=== PATIENT | female | born 1965 | race Caucasian/White ===

== ENCOUNTER → 2024-01-09 13:39 | Outpatient (REF) | payer OTHER, SELFPAY | LOC: WDC 13:39 | PROVIDERS: ATTENDING PHYSICIAN Physician Assistant Medical | DX: Z12.31 Encounter for screening mammogram for malignant neoplasm of breast (principal); Z13.820 Encounter for screening for osteoporosis | CPT/HCPCS: 77080 ==

== ENCOUNTER 2024-04-29 10:10 | Emergency (ER) | payer BC, SELFPAY ==
[2024-04-29] VITALS (7 sets, daily range): BP systolic 98–116; BP diastolic 48–70; PULSE 75–92; BMI 26.9
--- NOTE | 2024-04-29 11:43 | EDRN ---
Lm ESPINOZA in room w/pt at this time.
--- NOTE | 2024-04-29 11:55 | ED.GENMED ---
History of Present Illness
General
Chief Complaint: Fainting/Passed Out
Source: patient
Time Seen by Provider: 04/29/24 11:42
History of Present Illness
History of Present Illness:
59yoF with a history of seasonal allergies presenting for evaluation after a syncopal episode. Patient woke up around 2am this morning to urinate. While she was on the toilet urinating, she started to feel 'weird' and felt like she had to go sit
down. Patient tried to hurry on the toilet to get back to bed. Patient was walking out of the bathroom when she passed out. She fell forward and struck her head on the doorknob. She was unconscious for about 30 seconds. Her helped her up and
then she had a second episode of passing out. states that she was snoring immediately upon losing consciousness. There was no seizure-like activity, incontinence, or tongue biting. Patient then went back to sleep. She denies any dizziness
currently. No chest pain, shortness of breath, palpitations during the episode. She has a history of syncopal episodes in the past but has not had an episode in several years. Of note, she has been very thirsty the past few days.
Phy Exam
General Physical Exam
General Presentation: well appearing and no apparent distress
General age: appears stated age
General Skin: warm and dry
General Habitus: normal
General Mental: alert
ENT Exam
ENT Exam: TM's normal (No hemotympanum), normocephalic and other (1.5cm well approximated curved laceration to the L forehead with scabbing)
Cardiovascular Exam
Cardiovascular Exam: regular rate/rhythm and no edema
Pulmonary Exam
Pulmonary Exam: lungs clear, no respiratory distress, no crackles and no wheezing
[place] Coma Scale
Eye Opening: Spontaneous
Verbal Response: Oriented
Motor Response: Obeys Commands
GCS Total Score: 15
Skin Exam
Skin Exam: normal color and warm/dry
Psychiatric Exam
Psychiatric Exam: normal mood/affect
Course
Orders/Labs/Results
Orders:
Orders
04/29/24 11:54
Electrocardiogram (*1) Urgent
Reason for Study: Syncope
EKG- Treatment ONCE
0.9% Sodium Chloride 1000 ml [Nss] 1,000 ml IV BOLUS
04/29/24 11:57
Cardiac Monitoring- Treatment ONCE
04/29/24 12:01
CT Head W/o Iv Contrast Urgent
Comment:
Reason For Exam: Head injury, LOC
04/29/24 12:02
Orthostatic VS- Treatment ONCE
04/29/24 12:24
Complete Blood Count/With Diff Urgent
Comprehensive Metabolic Panel Urgent
Troponin I Urgent
Abnormal Lab Results
04/29/24
12:24
MPV 11.9 H fL
(7.4-10.4)
Absolute Lymphs (auto) 0.9 L 10^3/uL
(1.2-3.4)
Neutrophils % 77.7 H %
(42.2-75.2)
Lymphocytes % 14.2 L %
(20.5-51.1)
Glucose 101 H mg/dl
(70-99)
04/29/24 12:24
04/29/24 12:24
Vital Signs
Initial and Last Documented VS:
Initial Vital Signs
Temp Pulse Resp BP Pulse Ox
97.6 F 98 18 112/70 97
04/29/24 10:13 04/29/24 10:13 04/29/24 10:13 04/29/24 10:13 04/29/24 10:13
Last Documented Vital Signs
Temp Pulse Resp BP Pulse Ox
97.6 F 78 18 116/61 99
04/29/24 10:13 04/29/24 13:55 04/29/24 13:55 04/29/24 13:55 04/29/24 13:55
Procedures
Laceration Closure
Forehead:
Status of Wound: clean
Size of Wound in cm: 1.5
Description of Wound Edges: sharp
Preparation: cleaned with saline
Revision/Debridement: routine- no revision
Type of Closure: Dermabond-skin glue
MDM/Problems Addressed
Differential Diagnosis Includes:
59yoF here for syncope. Episode occurred at 2am this morning. Preceded by feeling 'weird' and dizzy. Lasted 30 seconds. Had a second episode immediately afterwards in which patient was snoring. No associated seizure-like activity, incontinence, or
tongue biting. No CP/SOB. No palpitations. No cardiac risk factors. She is afebrile and hemodynamically stable. She is well appearing in no distress. Exam shows a well approximated forehead laceration. Remainder of exam reassuring. Differential
diagnosis includes but is not limited to: vasovagal event, orthostatic hypotension, micturition syncope, dehydration, seizure, cardiogenic syncope
Initial ED plan: Place patient on electric range preparer. Check cardiac labs, EKG, CT head, and orthostatic vital signs. IV fluid bolus.
*EKG
Interpreted by ED Provider?: Yes
EKG Intrepretation Date: 04/29/24
Heart Rate: 75
Rate: normal
Rhythm: sinus
[place]: normal axis
Interval: normal interval
QRS Pattern: normal QRS
Ischemia: no ischemia
*Critical Care Note
Total Time (30-74mins, 75-104mins- exclusive of procedures): Not Applicable
Update Note
Update Note:
Labs unremarkable including normal hemoglobin and glucose. EKG shows NSR without ectopy or ischemic changes. Intervals normal. Troponin WNL. CT head is negative for acute findings. Orthostatic vital signs normal. Skin glue and steri-strips applied
to forehead laceration. Patient stable for discharge. Advised f/u with PCP and cardiology. ED return precautions discussed. She expressed understanding and is agreeable to plan. Patient discharged in stable condition.
ED Attending Note
-
Portions of this chart may have been created with voice recognition software.� Occasional wrong word or��sound alike� substitutions may have occurred due to the inherent limitations of voice recognition software.
Discharge Plan
Departure
Patient Disposition: Home (Routine Discharge)
Date of Disposition: 04/29/24
Time of Disposition: 13:49
Patient with high blood pressure during this ER visit?: No
Discharge Problem:
Syncope, Forehead laceration, Closed head injury
Instructions: Syncope (Fainting) (DC)
Prescriptions:
No Action
multivitamin Tablet
1 tab PO DAILY
cetirizine [Zyrtec] 10 mg Tablet
10 mg PO DAILY
citalopram 10 mg Tablet
10 mg PO DAILY
magnesium 250 mg Tablet
250 mg PO HS
ascorbic acid (vitamin C) [Vitamin C] 500 mg Tablet Extended Release
500 mg PO DAILY
cholecalciferol (vitamin D3) [Vitamin D3] 125 mcg (5,000 unit) Tablet
125 mcg PO DAILY
mecobalamin (vitamin B12) 1,000 mcg Tablet,Chewable
1,000 mcg PO DAILY
omega 9-eck-nej-fish oil [Fish Oil] 1,200 (144-216) mg Capsule
1 cap PO HS
Referrals:
aCrlos Torres MD [Active] -
Araceli Tolminson PA [Family Provider] -
Activity Restrictions/Additional Instructions:
Drink plenty of fluids.
Please call today to schedule a follow-up with your family doctor and cardiology.
Return to the ER with any new or worsening symptoms.
Interventions
Interventions:
*Risk Screen - Suicide Last Done: 04/29/24 12:29
*General Assessment Last Done: 04/29/24 12:29
*Neglect/Abuse Screening Last Done: 04/29/24 12:29
ED- Fall Risk Assessment Last Done: 04/29/24 12:29
*ED COVID-19 Vaccine History Last Done: 04/29/24 12:29
*Nursing Disposition Last Done: 04/29/24 13:55
ED- Cardiac Assessment Last Done: 04/29/24 12:29
ED- Neurological Assessment Last Done: 04/29/24 12:29
Discharge Date and Time
Discharge Date/Time: 04/29/24 13:55
Print Language: SURINAMESE
[2024-04-29 12:32] LABS: % Basophils 0.6 % (0-2); % Eosinophils 0.6 % (0-6); % Immature Granulocytes 0.2 % (0-0.5); % Lymphocytes 14.2 % (20.5-51.1); % Monocytes 6.7 % (1.7-9.3); % Neutrophils 77.7 % (42.2-75.2); Absolute Lymphocytes 0.9 10^3/uL (1.2-3.4); Absolute Monocytes 0.4 10^3/uL (0.1-0.6); Hematocrit 41.7 % (37.0-47.0); Hemoglobin 14.4 g/dL (12.0-16.0); Mean Corp Hgb Conc. 34.5 g/dL (33.0-37.0); Mean Corpuscular Volume 86.9 fL (81.0-99.0); Mean Platelet Volume 11.9 fL (7.4-10.4); Nucleated Red Blood Cells % 0 %; Platelet Count 212 10^3/uL (130-400); Red Cell Dist. Width 13.1 % (11.5-14.5); White Blood Cell Count 6.4 10^3/uL (4.8-10.8)
[2024-04-29 12:45] LABS: ALT (SGPT) 19 U/L (0-35); AST (SGOT) 25 U/L (14-36); Albumin 4.7 g/dl (3.5-5.0); Alkaline Phosphatase 64 U/L (38-126); Blood Urea Nitrogen 16 mg/dl (7-17); Calcium 9.6 mg/dl (8.4-10.2); Carbon Dioxide 27 mmol/L (22-30); Chloride 100 mmol/L (98-107); Estimated Creatinine Clearance 96 ml/min; Glucose 101 mg/dl (70-99); Potassium 4.3 mmol/L (3.5-5.1); Sodium 141 mmol/L (135-145); Total Bilirubin 0.6 mg/dl (0.2-1.3); Total Protein 7.4 g/dl (6.3-8.2); eGFR > 60.00
--- NOTE | 2024-04-29 12:50 | EDRN ---
During orthostatic VS pt was symptomatic only on standing w/ some nausea that passed in seconds.
[2024-04-29 12:57] LABS: Troponin I < 0.012 ng/ml
== END 2024-04-29 13:55 | disposition home or self-care (01) ==
LOC: EMR 10:10
PROVIDERS: Physician Assistant; EMERGENCY PHYSICIAN Emergency Medicine; FAMILY PHYSICIAN Physician Assistant Medical
DX: R55 Syncope and collapse (principal); S01.81XA Laceration without foreign body of other part of head, initial encounter; S09.90XA Unspecified injury of head, initial encounter; W19.XXXA Unspecified fall, initial encounter
CPT/HCPCS: 99285; 12011; 70450; 80053; 84484; 85025; 93005

== ENCOUNTER → 2024-07-30 07:20 | Outpatient (REF) | payer BC, SELFPAY | LOC: RCS 07:20 | PROVIDERS: ATTENDING PHYSICIAN Internal Medicine Interventional Cardiology; FAMILY PHYSICIAN Student in an Organized Health Care Education/Training Program | DX: R42 Dizziness and giddiness (principal); R55 Syncope and collapse | CPT/HCPCS: 93306 ==